=== PATIENT | male | born 1950 | race Caucasian/White ===

== ENCOUNTER 2017-10-18 15:02 | Emergency (ER) | payer MEDICARE ==
[2017-10-18 15:42] VITALS: RESP 18
[2017-10-18] MEDS ORDERED: ORPHENADRINE 30 MG/ML 2 ML VIAL IM STA (16:59)
[2017-10-18] MEDS ORDERED: MORPHINE SULFATE 4 MG/ML SYRINGE IM STA (16:59)
--- NOTE | 2017-10-18 17:03 | ED ---
Back Pain HPI - General Source: patient Limitations: no limitations <Marisela Hoffman - Last Filed: 10/18/17 16:59> <Fortino Kitchen - Last Filed: 10/18/17 20:52> - General Chief Complaint: Back Pain/Injury Stated Complaint: fall/back pain Time Seen by Provider: 10/18/17 16:42 - History of Present Illness Initial Comments: 67-year-old male patient presents the emergency department today for evaluation of increased low back pain. Patient states he does have an extensive history of chronic low back pain with multiple surgeries. Patient states that yesterday his left knee gave out and he fell landing on his back. The patient states that he has had a significant increase in his low back pain since the fall. States that he does have pain radiation down both legs and numbness of the left leg however this is not new. Patient states he also injured his right shoulder during the fall. He denies hitting his head or losing consciousness. He denies any numbness or tingling to the right upper arm. Denies any difficulty with range of motion other than increased pain with movement. Patient denies any saddle anesthesia or loss of bowel or bladder control. Patient denies any headache, neck pain, chest pain, shortness of breath, dizziness, weakness, abdominal pain, nausea, or vomiting. (Marisela Hoffman) - Related Data Allergies Allergy/AdvReac Type Severity Reaction Status Date / Time No Known Allergies Allergy Verified 10/18/17 17:20 Review of Systems ROS Other: All systems not noted in ROS Statement are negative. <Marisela Hoffman - Last Filed: 10/18/17 16:59> ROS Other: All systems not noted in ROS Statement are negative. <Fortino Kitchen - Last Filed: 10/18/17 20:52> ROS Statement: Those systems with pertinent positive or pertinent negative responses have been documented in the HPI. Past Medical History Past Medical History: No Reported History Additional Past Medical History / Comment(s): back pain History of Any Multi-Drug Resistant Organisms: None Reported Past Surgical History: Back Surgery, Orthopedic Surgery Past Psychological History: No Psychological Hx Reported Smoking Status: Never smoker Past Alcohol Use History: None Reported Past Drug Use History: None Reported <Marisela Hoffman - Last Filed: 10/18/17 16:59> General Exam Limitations: no limitations General appearance: alert, in no apparent distress, other (Social well-developed , well-nourished adult male patient in mild distress related to pain. Vital signs upon presentation are temperature 97.6F, pulse 83, respirations 18, blood pressure 132/70, pulse ox 99% on room air.) Eye exam: Present: normal appearance, PERRL, EOMI. Absent: scleral icterus, conjunctival injection, periorbital swelling ENT exam: Present: normal exam, normal oropharynx, mucous membranes moist Neck exam: Present: normal inspection, full ROM, other (Nontender, no step-off, no deformity to firm midline palpation of the posterior cervical spine. Full range of motion without pain or limitation.). Absent: tenderness, meningismus, lymphadenopathy Respiratory exam: Present: normal lung sounds bilaterally. Absent: respiratory distress, wheezes, rales, rhonchi, stridor Cardiovascular Exam: Present: regular rate, normal rhythm, normal heart sounds. Absent: systolic murmur, diastolic murmur, rubs, gallop, clicks GI/Abdominal exam: Present: soft, normal bowel sounds. Absent: distended, tenderness, guarding, rebound, rigid Extremities exam: Present: normal inspection, full ROM, normal capillary refill , other (Skin to all extremities is pink, warm, and dry. Cap refills less than 3 seconds. Pedal and posttibial pulses are 2+ and equal bilaterally. Radial pulses are 2+ and equal bilaterally.). Absent: tenderness, pedal edema, joint swelling, calf tenderness Back exam: Present: normal inspection, vertebral tenderness (Lumbar) Neurological exam: Present: alert, oriented X3, CN II-XII intact, other ( Strength in all 4 extremities is 5/5) Psychiatric exam: Present: normal affect, normal mood Skin exam: Present: warm, dry, intact, normal color. Absent: rash <Marisela Hoffman - Last Filed: 10/18/17 16:59> Course <Marisela Hoffman - Last Filed: 10/18/17 16:59> <Fotrino Kitchen - Last Filed: 10/18/17 20:52> Vital Signs 10/18/17 10/18/17 15:40 19:18 Temperature 97.6 F 98.3 F Pulse Rate 83 65 Respiratory 18 18 Rate Blood Pressure 132/70 109/70 O2 Sat by Pulse 99 98 Oximetry Shouldn't is reassessed at term 2030 reviewed his shoulder x-ray that S unremarkable reviewed his CT of the lumbar spine he has extensive degenerative disease worse at L3 these findings were discussed with the patient patient requested a referral to pain management doctor patient's sees Dr. David, they request patient will be referred to (Fortino Kitchen) Disposition <Marisela Hoffman - Last Filed: 10/18/17 16:59> Is patient prescribed a controlled substance at d/c from ED?: No <Fortino Kitchen - Last Filed: 10/18/17 20:52> Clinical Impression: Back pain, Shoulder pain Disposition: HOME SELF-CARE Condition: Good Instructions: Chronic Back Pain (ED) Referrals: Lukas Burt DO [Primary Care Provider] - 1-2 days Delilah David MD [STAFF PHYSICIAN] - 1-2 days
--- NOTE | 2017-10-18 17:37 | XR ---
PROCEDURE: XR shoulder complete RT, 3 views DATE AND TIME: 10/18/2017 5:26 PM REFERRING PHYSICIAN: Marisela Hoffman CLINICAL INDICATION: Pain following trauma TECHNIQUE: Department protocol. COMPARISON: None FINDINGS: There is no fracture or malalignment. The soft tissues are unremarkable. Generalized osteoa rthritis changes appreciated. IMPRESSION: NO ACUTE PROCESS.
[2017-10-18] MEDS ORDERED: HYDROmorphone 0.5 MG/0.5 ML SYRINGE IM STA (18:18)
[2017-10-18 19:23] VITALS: TEMP 98.3
--- NOTE | 2017-10-18 19:27 | CT ---
EXAMINATION TYPE: CT lumbar spine wo con DATE OF EXAM: 10/18/2017 6:34 PM COMPARISON: MRI report 11/10/2012 HISTORY: Fall last night. Pain down both legs. CT DLP: 361.9 mGycm Automated exposure control for dose reduction was used. FINDINGS: There is no fracture. There is no anterior-posterior malalignment on the sagittal sequence. However, the coronal sequence shows 8 mm rightward subluxation of L3 upon L4. L1-L2: There is triangulation of the thecal sac due to significant disc bulge and ligamentum flavum h ypertrophy with mild osteoarthritis of the facet joints bilaterally. No focal disc extrusion. No defi nite nerve root impingement. L2-L3: Moderate triangulation of the thecal sac with disc bulge and ligamentum flavum hypertrophy rosa rowing the bilateral L3 lateral recesses. L3-L4: There is moderate central canal and marked bilateral lateral recess stenosis at this level due to degenerative disc and facet changes. L4-L5: There is [id number]-ch-[id number] bilateral lateral recess stenosis at this level due to degenerative disc and facet changes. L5-S1: No candidate for nerve root impingement at this level. IMPRESSION: 1. NO ACUTE PROCESS. 2. DEGENERATIVE CHANGES AT ALL LEVELS, BUT MOST ADVANCED AT L3-4.
[2017-10-18 21:05] VITALS: BP 124/58; PULSE 62
== END 2017-10-18 21:04 | disposition home or self-care (01) ==
LOC: EC 15:02
DX: M54.5 Low back pain (principal); M25.511 Pain in right shoulder; M47.816 Spondylosis without myelopathy or radiculopathy, lumbar region; M79.604 Pain in right leg; M79.605 Pain in left leg; R20.0 Anesthesia of skin; Z98.890 Other specified postprocedural states; W19.XXXA Unspecified fall, initial encounter
CPT/HCPCS: 73030; 72131; 99284; 96372 ×3; J2270; J2360; J1170

== ENCOUNTER → 2017-12-24 | Outpatient (CLI) | payer MEDICARE ==
--- NOTE | 2017-12-24 10:48 | MR ---
EXAMINATION TYPE: MR lumbar spine wo con DATE OF EXAM: 12/24/2017 COMPARISON: 11/10/2012 HISTORY: Low back pain TECHNIQUE: T1 and T2 axial and sagittal images of the lumbar spine are submitted. FINDINGS: There is no abnormal signal seen within the visualized spinal cord or paraspinal soft tissu es. There is a curvature the spine with multilevel degenerative disc disease. Most marked findings at L3-L4 with discogenic marrow changes and severe degenerative disc disease which is slightly progress ed from the prior exam. Within the spinal canal the conus medullaris terminates at the approximate le aisha of T12-L1. However, distally there appears to be nodular thickening of the nerve roots. This is r etrospectively stable from the prior exam. 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 Post contrast images could be ex cluded obtained to exclude other etiologies. At L1-2 there is mild to moderate broad disc bulge effacing anterior thecal sac. Hypertrophic changes of the facets are noted. Mild bilateral foraminal encroachment with circumferential disc bulging. At L2-3 there is mild to moderate broad disc bulge effacing anterior thecal sac . There is bilateral hypertrophic change of the facets which is stable. Ligamentum flavum hypertrophy noted. Mild bilatera l foraminal encroachment. At L3-4 there is severe degenerative disc disease with facet arthropathy and ligamentum flavum hypert rophy. There is moderate right foraminal encroachment and mild left foraminal encroachment which is s lightly progressed from the prior exam. Mild central stenosis suspected. At L4-5 there is facet arthropathy. Circumferential disc bulging with mild effacement of thecal sac. Bulging greater laterally to the right with mild right-sided foraminal encroachment. Correlate clinic ally. Bilateral lateral recess stenosis noted. At L5-S1 there is advanced facet arthropathy. There is degenerative disc disease. Neural foramina rem ain patent. No Canal stenosis. Nerve root displacement is noted and clumping of the distal nerve root s which may been the basis of arachnoiditis. IMPRESSION: 1. Multilevel degenerative disc disease with advancement at L3-4. Severe degenerative changes seen wi th hypertrophic change of the facets and ligamentum flavum result in mild central stenosis and bilate ral foraminal encroachment. 2. There is a nodular thickening of the majority of the nerve roots within the cauda equina extending from the level of L1 through visualized S1 level. Most likely on the basis of arachnoiditis rather t nix mass. Recommend post contrast imaging. 3. Multilevel disc bulging and facet arthropathy as discussed above resulting in multilevel foraminal encroachment which is similar to the prior exam.
== END | disposition home or self-care (01) ==
LOC: RADMRIMAIN 09:24
PROVIDERS: ATTEND Psychiatry & Neurology Neurology
DX: M48.061 Spinal stenosis, lumbar region without neurogenic claudication (principal); M51.27 Other intervertebral disc displacement, lumbosacral region; M51.36 Other intervertebral disc degeneration, lumbar region; M47.816 Spondylosis without myelopathy or radiculopathy, lumbar region; M46.97 Unspecified inflammatory spondylopathy, lumbosacral region; M24.28 Disorder of ligament, vertebrae
CPT/HCPCS: 72148

== ENCOUNTER → 2019-01-13 | Outpatient (CLI) | payer MEDICARE ==
--- NOTE | 2019-01-13 16:25 | MR ---
EXAMINATION TYPE: MR lumbar spine wo/w con DATE OF EXAM: 01/13/2019 1:59 PM COMPARISON: 12/24/2017 HISTORY: Sciatica CONTRAST: The patient was injected with 6.5 mL intravenous Gadavist gadolinium contrast. Multiplanar, MultiSpin echo imaging of the lumbar spine was performed. L1-L2: Mild disc desiccation. Minimal posterior disc bulge. No evidence for herniation or central sb nosis. Ventral spondylosis noted. L2-L3: Moderate disc desiccation. Circumferential disc bulge greatest posteriorly. Effacement ventral thecal sac. No evidence for central stenosis. Mild bilateral lateral recess stenosis noted. Bilatera l foraminal encroachment. L3-L4: Moderate disc desiccation. Circumferential disc bulge greatest posteriorly. Effacement ventral thecal sac. Mild central stenosis persists. Bilateral lateral recess stenosis and foraminal encroach ment. Bilateral foraminal encroachment. L4-L5: Left hemilaminectomy change. Moderate disc desiccation. Posterior disc bulge. Right lateral re cess stenosis. Bilateral foraminal encroachment. L5-S1: Mild disc desiccation. Partial discectomy change suggested. Mild posterior disc enhancement. N o disc herniation. No central stenosis. Lumbar segments are intact. No paraspinal masses are identified. Conus medullaris has a normal appe arance. IMPRESSION: 1. Postoperative changes as noted. 2. Central stenosis identified at L3-4 with lateral recess stenosis at L2-3 and L4-5. Multilevel fora latosha encroachment as noted above.
== END | disposition home or self-care (01) ==
LOC: RADMRIMAIN 12:37
PROVIDERS: ATTEND Orthopaedic Surgery
DX: M48.061 Spinal stenosis, lumbar region without neurogenic claudication (principal); Z98.890 Other specified postprocedural states
CPT/HCPCS: 72158; A9585

== ENCOUNTER → 2020-08-16 | Outpatient (CLI) | payer MEDICARE ==
--- NOTE | 2020-08-16 14:57 | XR ---
EXAMINATION TYPE: XR Hip Bilateral Complete DATE OF EXAM: 08/16/2020 CLINICAL HISTORY: pain TECHNIQUE: AP and frogleg views of the bilateral hips are obtained. COMPARISON: None. FINDINGS: There is no acute fracture/dislocation evident. The joint space appears mildly narrowed. Small well-corticated ossific density adjacent to the greater trochanter on the left. The overlying soft tissue appears unremarkable. IMPRESSION: 1. There is no acute fracture or dislocation. ICD 10 NO FRACTURE, INITIAL EVALUATION
== END | disposition home or self-care (01) ==
LOC: RADXRMAIN 13:42
PROVIDERS: ATTEND Family Medicine
DX: M25.561 Pain in right knee (principal); M25.562 Pain in left knee; M25.551 Pain in right hip; M25.552 Pain in left hip
CPT/HCPCS: 73521

== ENCOUNTER → 2021-09-03 | Outpatient (CLI) | payer MEDICARE ==
[2021-09-03 10:19] LABS: African American GFR (CKD) >90 (>60 ml/min/1.73 sqM); Blood Urea Nitrogen 13 mg/dL (9-20); Non-African American GFR(CKD) 80 (>60 ml/min/1.73 sqM)
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
== END | disposition home or self-care (01) ==
LOC: RADCTMAIN 09:40
PROVIDERS: ATTEND Family Medicine
DX: R51.9 Headache, unspecified (principal)
CPT/HCPCS: 82565; 84520; 70460; 36415; Q9967